=== PATIENT | female | born 1985 | race Two or more races ===

== ENCOUNTER 2017-07-21 08:02 | Emergency (ER) | payer OTHER ==
[~2017-07-21] VITALS: Ht 165.1 cm; Wt 59.0 kg
[2017-07-21] MEDS ORDERED: SYNTHROID50 MCG (08:15)
== END 2017-07-21 12:02 | disposition home or self-care (01) ==
LOC: ER 08:02
DX: M25.512 Pain in left shoulder (principal); M25.511 Pain in right shoulder; M54.89 Other dorsalgia

== ENCOUNTER 2017-09-12 15:51 | Emergency (ER) | payer OTHER ==
[~2017-09-12] VITALS: Ht 162.6 cm; Wt 59.0 kg
[~2017-09-12 15:51] MED LIST: SYNTHROID50 MCG
== END 2017-09-12 19:52 | disposition home or self-care (01) ==
LOC: ER 15:51
DX: J06.9 Acute upper respiratory infection, unspecified (principal); T54.91XA Toxic effect of unspecified corrosive substance, accidental (unintentional), initial encounter; Y92.89 Other specified places as the place of occurrence of the external cause

== ENCOUNTER 2017-09-25 14:38 | Outpatient (CLI) | payer OTHER | END 2017-09-25 15:00 | disposition home or self-care (01) | LOC: RAD 14:38 | DX: M54.2 Cervicalgia (principal); M54.6 Pain in thoracic spine; M54.5 Low back pain ==

== ENCOUNTER 2017-10-12 09:24 | Outpatient (CLI) | payer OTHER | END 2017-10-12 09:32 | disposition home or self-care (01) | LOC: SONOGRAMA 09:24 → RAD 09:24 | DX: E03.9 Hypothyroidism, unspecified (principal); M25.511 Pain in right shoulder; M25.619 Stiffness of unspecified shoulder, not elsewhere classified; M62.830 Muscle spasm of back ==

== ENCOUNTER 2018-11-15 11:01 | Emergency (ER) | payer OTHER ==
[~2018-11-15] VITALS: Ht 162.6 cm; Wt 59.0 kg
[2018-11-15] MEDS ORDERED: LEVOTHYROXINE25 MCG (12:07)
== END 2018-11-15 17:39 | disposition home or self-care (01) ==
LOC: ER 11:01
DX: H92.02 Otalgia, left ear (principal); J06.9 Acute upper respiratory infection, unspecified